=== PATIENT | female | born 1930 | race Hispanic/Latino ===

== ENCOUNTER 2017-06-13 16:37 | Emergency (ER) | payer MEDICARE, OTHER ==
[2017-06-13 16:37] VITALS: BMI 21.0
[2017-06-13 16:49] VITALS: BP 156/77; O2SAT 100
--- NOTE | 2017-06-13 17:15 | ED PDOC ---
HPI: General Adult Time Seen by Provider: 06/13/17 17:03 Chief Complaint (Nursing): Rib Injury Additional Complaint(s): 86 y/o F c PMHx osteoporosis p/w L sided thoracic pain s/p fall 2 days ago. Patient states she was walking down steps, missed the last step, and fell. She denies LOC, nausea, vomiting, vision change since. She denies pain elsewhere. States pain is worse with palpation, cough, deep breath, or movement. Denies fever or cough. Has not taken any medication for it. Past Medical History Vital Signs: Last Vital Signs Temp 97.6 F 06/13/17 20:37 Pulse 89 06/13/17 20:37 Resp 19 06/13/17 20:37 BP 156/77 H 06/13/17 16:44 Pulse Ox 100 06/14/17 16:08 - Medical History PMH: Arthritis, Fractures ((LUMBAR)vertebrae), HTN, Osteoporosis - Surgical History Surgical History: Appendectomy - Family History Family History: States: No Known Family Hx - Home Medications Home Medications: Ambulatory Orders Medication Instructions Recorded Acetaminophen 650 mg PO BID 11/07/15 Calcium Carbonate/Vitamin D3 1 cap PO DAILY 11/07/15 [Calcium 500 + D Tablet] Meloxicam [Mobic] 15 mg PO DAILY 11/09/15 amLODIPine [Norvasc] 2.5 mg PO DAILY 11/09/15 - Allergies Allergies/Adverse Reactions: Allergies Allergy/AdvReac Type Severity Reaction Status Date / Time No Known Allergies Allergy Verified 01/03/14 13:14 Review of Systems ROS Statement: Except As Marked, All Systems Reviewed And Found Negative Constitutional: Negative for: Fever Respiratory: Negative for: Cough Physical Exam - Physical Exam Comments: Gen: NAD Head: NC/AT Eyes: No hyphema ENT: MMM Neck: No midline tenderness, FROM Chest: L sided thoracic tenderness over lateral ribs without deformity, crepitus , ecchymosis CV: S1S2 Lungs: CTA b/l Abd: Soft, NT Back: No midline tenderness Extremities: Pelvis stable, FROM x 4 Skin: No ecchymosis Neuro: Alert, no focal deficit - ECG O2 Sat by Pulse Oximetry: 100 Medical Decision Making Medical Decision Making: Toradol for pain, XR ribs. Pending XR read. Signed out to ED night team. Disposition - Clinical Impression Clinical Impression: Contusion of rib on left side - Disposition Referrals: Josue Trinidad MD [Staff Provider] - Disposition Time: 19:00 Condition: STABLE Additional Instructions: Use incentive spirometer as directed four times daily Instructions: Bruised Rib (DC) Forms: [employer] (Croatian)
--- NOTE | 2017-06-13 19:51 | ED PDOC ---
- ECG O2 Sat by Pulse Oximetry: 100 (RA) Pulse Ox Interpretation: Normal Medical Decision Making Medical Decision Making: Patient signed out to provider at [address] Brower pending reading from VR. 193 EXAM: XR Left Ribs and AP Chest, 3 or More Views CLINICAL HISTORY: The patient is a 86 years female; Injury or trauma; Fall; Initial encounter; Rib area, left side; Blunt trauma; Patient HX: Lumbar surgery 2014; Additional info: Fall, l sided thoracic pain 06/13/2017 5:12 PM TECHNIQUE: Frontal and oblique views of the left ribs and frontal view of the chest. COMPARISON: No relevant prior studies available. FINDINGS: Lungs: Lungs are hyperinflated.Patchy and streaky opacities in the left lung base could either represent subsegmental atelectasis and/or developing infiltrate. Correlate clinically. Mild interstitial prominence. Pleural space: Small left pleural effusion not excluded. No pneumothorax. Heart: Atherosclerotic calcification of the aorta. No cardiomegaly. Bones/joints: Orthopedic hardware noted in the lower spine. IMPRESSION: Patchy and streaky opacities in the left lung base could either represent subsegmental atelectasis and/or developing infiltrate. Correlate clinically. 2020 - Reevaluation Patient reports that symptoms have improved and she has been informed of need for use of incentive spirometer as well as advil at home for pain. Return precautions given. Diagnosis: Left sided rib contusion Condition: Stable Documented by Brigitte Manley acting as a scribe for Pawan Bailey MD. All medical record entries made by the Scribe were at my direction and personally dictated by me. I have reviewed the chart and agree that the record accurately reflects my personal performance of the history, physical exam, medical decision making, and the department course for this patient. I have also personally directed, reviewed, and agree with the discharge instructions and disposition. Disposition Counseled Patient/Family Regarding: Studies Performed, Diagnosis - Clinical Impression Clinical Impression: Contusion of rib on left side - POA Present On Arrival: None - Disposition Referrals: Josue Trinidad MD [Staff Provider] - Disposition: Routine/Home Disposition Time: 20:21 Condition: STABLE Additional Instructions: Use incentive spirometer as directed four times daily Instructions: Bruised Rib (DC) Forms: [employer] (Turkish)
[2017-06-13 20:38] VITALS: PULSE 89; RESP 19; TEMP 97.6
--- NOTE | 2017-06-14 11:38 | RAD ---
PROCEDURE: Radiographs of the Chest and Left Ribs. HISTORY: fall, L sided thoracic pain COMPARISON: None available. TECHNIQUE: Frontal radiograph of the chest and multiple oblique radiographs of the left ribs were obtained. FINDINGS: LEFT RIBS: No fracture or focal lesion visualized. LUNGS: Mild left basilar interstitial changes. PLEURA: No pneumothorax or pleural fluid. CARDIOVASCULAR: Normal sized heart. No pulmonary vascular congestion. OTHER FINDINGS: None. IMPRESSION: Mild left basilar interstitial changes. No left rib fracture.
== END 2017-06-13 20:40 | disposition home or self-care (01) ==
LOC: H.ER 16:37
DX: S20.212A Contusion of left front wall of thorax, initial encounter (principal); W10.9XXA Fall (on) (from) unspecified stairs and steps, initial encounter; Y92.89 Other specified places as the place of occurrence of the external cause; I10 Essential (primary) hypertension; M81.0 Age-related osteoporosis without current pathological fracture
CPT/HCPCS: 71101; 96372; 99283; J1885

== ENCOUNTER 2017-07-08 21:49 | Emergency (ER) | payer MEDICARE, OTHER ==
[2017-07-08 21:49] VITALS: BMI 21.0
[2017-07-08 22:13] VITALS: RESP 18; TEMP 98.2; O2SAT 95
--- NOTE | 2017-07-09 00:20 | ED PDOC ---
HPI: Trauma/Fall - HPI Time Seen by Provider: 07/09/17 00:12 Chief Complaint (Nursing): Trauma History Per: Patient History/Exam Limitations: no limitations Onset/Duration Of Symptoms: Hrs Severity: None Additional History Per: Patient Additional Complaint(s): Hx of osteoporosis, HTN, and spinal surgery presenting with fall, states the dog tripped, fell forward injuring her head and L eblow and wrist. No LOC, no other injuries, no dizziness, no incoordination. Patient takes ASA. Past Medical History Reviewed: Historical Data, Nursing Documentation, Vital Signs Vital Signs: Last Vital Signs Temp 98.2 F 07/08/17 22:03 Pulse 106 H 07/08/17 22:03 Resp 18 07/08/17 22:03 BP 163/97 H 07/08/17 22:03 Pulse Ox 95 07/08/17 22:03 - Medical History PMH: Arthritis, Fractures ((LUMBAR)vertebrae), HTN, Osteoporosis - Surgical History Surgical History: Appendectomy - Family History Family History: States: Unknown Family Hx - Home Medications Home Medications: Ambulatory Orders Medication Instructions Recorded Acetaminophen 650 mg PO BID 11/07/15 Calcium Carbonate/Vitamin D3 1 cap PO DAILY 11/07/15 [Calcium 500 + D Tablet] Meloxicam [Mobic] 15 mg PO DAILY 11/09/15 amLODIPine [Norvasc] 2.5 mg PO DAILY 11/09/15 - Allergies Allergies/Adverse Reactions: Allergies Allergy/AdvReac Type Severity Reaction Status Date / Time No Known Allergies Allergy Verified 01/03/14 13:14 Review of Systems ROS Statement: Except As Marked, All Systems Reviewed And Found Negative Neurological: Negative for: Weakness, Numbness, Incoordination Physical Exam - Reviewed Nursing Documentation Reviewed: Yes Vital Signs Reviewed: Yes - Physical Exam Appears: Positive for: Well, Non-toxic, No Acute Distress Head Exam: Positive for: NORMAL INSPECTION, NORMOCEPHALIC. Negative for: ATRAUMATIC (Hematoma and ecchymoses to L frontal area) Skin: Positive for: Normal Color, Warm, DRY Eye Exam: Positive for: EOMI, Normal appearance, PERRL ENT: Positive for: Normal ENT Inspection Neck: Positive for: Normal, Painless ROM Cardiovascular/Chest: Positive for: Regular Rate, Rhythm Respiratory: Positive for: CNT, Normal Breath Sounds Gastrointestinal/Abdominal: Positive for: Normal Exam, Soft. Negative for: Tenderness Back: Positive for: Other (Wearing back brace) Extremity: Positive for: Normal ROM, Swelling (Swelling of L wrist w/ FROM, able to fully flex and extend, NV intact, 2+ DP's, has swelling to distal wrist , no scaphoid tenderness; L elbow w/ hematoma, swelling, no bony tenderness/ abnormality ) Neurologic/Psych: Positive for: Alert, cath lab tech II-XII, Oriented, Gait (normal). Negative for: Motor/Sensory Deficits - ECG O2 Sat by Pulse Oximetry: 95 Medical Decision Making Medical Decision Makin CT HEAD FINDINGS: Brain: Moderate atrophy. No intracranial hemorrhage. No mass. Few scattered foci of decreased attenuation within periventricular/subcortical white matter. No edema. Ventricles: No hydrocephalus. Bones/joints: No acute fracture. Soft tissues: LEFT frontal soft tissue swelling. Vasculature: Minimal atherosclerotic disease of intracranial arteries. Sinuses: Scattered mild mucosal thickening of ethmoid, maxillary sinuses. Air- fluid levels within maxillary sinuses. Mastoid air cells: No mastoid effusion. Orbits: Unremarkable as visualized. IMPRESSION: 1. No intracranial hemorrhage. 2. Nonspecific white matter changes. 3. Sinus disease. 4. Incidental/non-acute findings are described above. 0208 CT CERVICAL SPINE FINDINGS: Vertebrae: Mild compression fracture superior endplate T1 vertebral body, acute or subacute. Incomplete closure of C1 ring, normal variant. Mild facet osteoarthrosis. Discs/spinal canal/neural foramina: Moderate to severe degenerative disc disease within mid and lower cervical spine. Mild indentation thecal sac/cord mid and lower cervical spine. Neuroforaminal narrowing with mid and lower cervical spine. Soft tissues: Unremarkable. Vasculature: Atherosclerotic disease of carotid arteries. Lung apices: Minimal apical scarring. IMPRESSION: 1. T1 compression fracture, acute or subacute. 2. Incidental/non-acute findings are described above. 0300 Upon re-evaluation patient is feeling well. Patient has been placed in a splint which provider has checked. Fingers are warm and well-profused in splint. Regarding CT NECK findings, patient has no neck or back pain at present time. Patient agrees to follow up with personal neurosurgeon Dr. Chun as well as orthopedist for fracture. Patient is stable for discharge at home. Scribe Attestation: Documented by Jeannette Webster acting as a scribe for Jaspal Peres MD. MD [place] Attestation: All medical record entries made by the Kostaibmargy were at my direction and personally dictated by me. I have reviewed the chart and agree that the record accurately reflects my personal performance of the history, physical exam, medical decision making, and the department course for this patient. I have also personally directed, reviewed, and agree with the discharge instructions and disposition. Disposition - Clinical Impression Clinical Impression: Wrist fracture - Disposition Referrals: Faustino Watson MD [Staff Provider] - Disposition: Routine/Home Disposition Time: 03:00 Condition: STABLE Instructions: Wrist Fracture (DC) Forms: [facility] (Nepalese)
--- NOTE | 2017-07-09 01:55 | CT ---
EXAM: CT Head Without Intravenous Contrast CLINICAL HISTORY: 86 years old, female; Injury or trauma; Fall; Initial encounter; Concussion / head injury; Without loss of consciousness; Injury details: Tripped over her dog; Additional info: S/P fall TECHNIQUE: Axial computed tomography images of the head/brain without intravenous contrast. All CT scans at this facility use one or more dose reduction techniques, viz.: automated exposure control; ma/kV adjustment per patient size (including targeted exams where dose is matched to indication; i.e. head); or iterative reconstruction technique. Coronal and sagittal reformatted images were created and reviewed. COMPARISON: No relevant prior studies available. FINDINGS: Brain: Moderate atrophy. No intracranial hemorrhage. No mass. Few scattered foci of decreased attenuation within periventricular/subcortical white matter. No edema. Ventricles: No hydrocephalus. Bones/joints: No acute fracture. Soft tissues: LEFT frontal soft tissue swelling. Vasculature: Minimal atherosclerotic disease of intracranial arteries. Sinuses: Scattered mild mucosal thickening of ethmoid, maxillary sinuses. Air-fluid levels within maxillary sinuses. Mastoid air cells: No mastoid effusion. Orbits: Unremarkable as visualized. IMPRESSION: 1. No intracranial hemorrhage. 2. Nonspecific white matter changes. 3. Sinus disease. 4. Incidental/non-acute findings are described above.
--- NOTE | 2017-07-09 02:10 | CT ---
EXAM: CT Cervical Spine Without Intravenous Contrast CLINICAL HISTORY: 86 years old, female; Injury or trauma; Fall; Initial encounter; Concussion /head injury; Additional info: S/P fall TECHNIQUE: Axial computed tomography images of the cervical spine without intravenous contrast. All CT scans at this facility use one or more dose reduction techniques, viz.: automated exposure control; ma/kV adjustment per patient size (including targeted exams where dose is matched to indication; i.e. head); or iterative reconstruction technique. Coronal and sagittal reformatted images were created and reviewed. COMPARISON: No relevant prior studies available. FINDINGS: Vertebrae: Mild compression fracture superior endplate T1 vertebral body, acute or subacute. Incomplete closure of C1 ring, normal variant. Mild facet osteoarthrosis. Discs/spinal canal/neural foramina: Moderate to severe degenerative disc disease within mid and lower cervical spine. Mild indentation thecal sac/cord mid and lower cervical spine. Neuroforaminal narrowing with mid and lower cervical spine. Soft tissues: Unremarkable. Vasculature: Atherosclerotic disease of carotid arteries. Lung apices: Minimal apical scarring. IMPRESSION: 1. T1 compression fracture, acute or subacute. 2. Incidental/non-acute findings are described above.
[2017-07-09 05:38] VITALS: BP 130/34; PULSE 86
--- NOTE | 2017-07-09 09:34 | RAD ---
PROCEDURE: Left Wrist Radiographs. HISTORY: s/p fall COMPARISON: None. FINDINGS: BONES: Impacted dorsally angulated fracture of the distal radius. JOINTS: First carpometacarpal joint degenerative changes. SOFT TISSUES: Normal. OTHER FINDINGS: None. IMPRESSION: Impacted, dorsally angulated fracture of the distal radius.
--- NOTE | 2017-07-09 09:35 | RAD ---
PROCEDURE: Radiographs of the left elbow. HISTORY: s/p fall COMPARISON: No prior. FINDINGS: BONES: Osteopenia. No acute fracture. JOINTS: Degenerative changes. SOFT TISSUES: Normal. JOINT EFFUSION: None. OTHER FINDINGS: None IMPRESSION: No demonstrated fracture or dislocation.
== END 2017-07-09 03:30 | disposition home or self-care (01) ==
LOC: H.ER 21:49
DX: S09.90XA Unspecified injury of head, initial encounter (principal); S62.92XA Unspecified fracture of left hand, initial encounter for closed fracture; W01.0XXA Fall on same level from slipping, tripping and stumbling without subsequent striking against object, initial encounter; Y92.89 Other specified places as the place of occurrence of the external cause; I10 Essential (primary) hypertension; M19.90 Unspecified osteoarthritis, unspecified site; M81.0 Age-related osteoporosis without current pathological fracture; Z79.82 Long term (current) use of aspirin; J32.9 Chronic sinusitis, unspecified; M48.54XA Collapsed vertebra, not elsewhere classified, thoracic region, initial encounter for fracture